=== PATIENT | female | born 1995 | race Caucasian/White ===

== ENCOUNTER → 2020-06-02 14:07 | Outpatient (CLI) | payer OTHER, SELFPAY ==
[2019-09-02 12:22] VITALS: BMI 31.4
[2020-06-05 10:07] LABS: HPV Reflexed? NOT INDICATED
[2020-06-10 03:06] LABS: Antithrombin 3 Function 65 % (75-135); Dilute Russell Viper Venom 36.2 sec (0.0-47.0); Homocyst(e)ine 10.5 umol/L (0.0-14.5); PTT-Lupus Anticoagulant 49.2 sec (0.0-51.9); Protein C, Functional 156 % (73-180); dPT CONFIRMATION RATIO 1.48 Ratio (0.00-1.40)
[2020-06-10 15:48] LABS: Activated Protein C Resistance 2.4 ratio (2.2-3.5); Anti-Cardiolipin Ab, IgG, Qn < 9 GPL U/mL (0-14); Anti-Cardiolipin Ab, IgM, Qn 13 MPL U/mL (0-12); Beta-2-Glycoprotein I IgG <9 (0-20); Beta-2-Glycoprotein I IgM <9 (0-32); Interpretation Comment: (.); Protein S, Free 94 % (57-157)
== END ==
PROVIDERS: Visit Provider Obstetrics & Gynecology
DX: Z12.4 Encounter for screening for malignant neoplasm of cervix (principal); Z83.2 Family history of diseases of the blood and blood-forming organs and certain disorders involving the immune mechanism
CPT/HCPCS: 36415; 81240; 81241; 83090; 85300; 85303; 85307; 85420; 85613; 85705; 85732; 88175; G0145

== ENCOUNTER → 2020-09-13 09:21 | Outpatient (CLI) | payer OTHER, SELFPAY ==
[2020-06-24 13:47] VITALS: BMI 38.0
[2020-09-15 17:54] LABS: Anti-Cardiolipin Ab, IgA, Qn < 9 APL U/mL (0-11); Anti-Cardiolipin Ab, IgG, Qn < 9 GPL U/mL (0-14); Anti-Cardiolipin Ab, IgM, Qn 13 MPL U/mL (0-12)
== END ==
PROVIDERS: Referring Provider Internal Medicine Hematology & Oncology; Visit Provider Internal Medicine Hematology & Oncology
DX: D68.59 Other primary thrombophilia (principal)
CPT/HCPCS: 36415; 86147

== ENCOUNTER → 2020-10-24 12:28 | Outpatient (CLI) | payer OTHER, SELFPAY ==
[2020-10-06 11:03] VITALS: BMI 38.2
[2020-10-24 13:43] LABS: Hematocrit 43.9 % (37-47); Hemoglobin 14.3 g/dL (12.0-15.0); Mean Corp Hgb Conc 32.6 g/dL (32-36); Mean Platelet Vol. 9.5 fl (6.2-12.0); Platelet Count 286 K/mm3 (150-450); RBC Distribution Width CV 12.5 % (11.6-14.6); RBC Distribution Width SD 41.1 fl (35.1-43.9); Red Blood Count 4.93 M/mm3 (4.2-5.4); White Blood Count 7.3 K/mm3 (4.4-11.0)
[2020-10-24 14:00] LABS: Follicle Stimulating Hormone 5.2 mIU/mL; Luteinizing Hormone 9.2 mIU/mL; Prolactin 14.1 ng/mL; T4 Free Direct 1.21 ng/dL (0.76-1.46); Thyroid Stim Hormone (TSH) 1.68 uIU/mL (0.358-3.74)
[2020-10-27 05:06] LABS: Chlamydia By Nucleic Acid AMP Negative (Negative)
[2020-10-27 07:15] LABS: Gonococcus By Nucleic Acid AMP Negative (Negative)
[2020-10-29 10:22] LABS: Testosterone Free 7.9 pg/mL (0.0-4.2)
[2020-10-31 10:00] LABS: HPV APTIMA, High Risk Negative (Negative)
[2020-10-31 10:02] LABS: HPV Reflexed? YES, CHARGE PATIENT
== END ==
PROVIDERS: Visit Provider Obstetrics & Gynecology
DX: Z12.4 Encounter for screening for malignant neoplasm of cervix (principal); Z11.3 Encounter for screening for infections with a predominantly sexual mode of transmission; N93.9 Abnormal uterine and vaginal bleeding, unspecified
CPT/HCPCS: 36415; 82627; 83001; 83002; 84146; 84402; 84439; 84443; 85027; 87491; 87591; 87624; 88175; 82626; G0145